=== PATIENT | female | born 1960 | race Caucasian/White ===

== ENCOUNTER 2016-07-23 14:01 | Emergency (ER) | payer OTHER ==
[~2016-07-23] VITALS: Ht 149.9 cm; Wt 70.3 kg
[2016-07-23 14:01] VITALS: BP 140/77
[2016-07-23] MEDS ORDERED: NAPROXEN 250 MG TABLET PO ONE (14:30)
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
[2016-07-23] MEDS ORDERED: OXYCODONE/APAP 5/325 TABLET. PO ONE (15:00)
[2016-07-23] MEDS ORDERED: NAPR250T2 PO (15:10)
[2016-07-23] MEDS ORDERED: OXYC-323 PO (15:10)
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
== END 2016-07-23 15:45 | disposition home or self-care (01) ==
LOC: ER 14:01
DX: S52.691A Other fracture of lower end of right ulna, initial encounter for closed fracture (principal); V49.40XA Driver injured in collision with unspecified motor vehicles in traffic accident, initial encounter; Y92.413 State road as the place of occurrence of the external cause; Y93.89 Activity, other specified; Y99.8 Other external cause status
CPT/HCPCS: 29125; 73110; 99284-25